=== PATIENT | male | born 1950 | race Caucasian/White ===

== ENCOUNTER 2020-03-27 01:14 | Inpatient (IN) | payer BC ==
[~2020-03-27] VITALS: Ht 185.4 cm; Wt 106.1 kg
[2020-03-27] VITALS (7 sets, daily range): BP systolic 145–184; BP diastolic 70–107
[2020-03-27] MEDS ORDERED: LIPITOR 20 MG T20 M1 PO (01:56)
[2020-03-27] MEDS ORDERED: GLIMEPIRIDE4 MG PO (01:58)
[2020-03-27] MEDS ORDERED: XARELTO20 MG PO (02:00)
[2020-03-27] MEDS ORDERED: LISINOPRIL2.5 MG PO (02:00)
[2020-03-27] MEDS ORDERED: METFORMIN HCL500 M3 PO (02:00)
[2020-03-27] MEDS ORDERED: ULTRAM 50MG TAB50 MG PO (02:01)
[2020-03-27] MEDS ORDERED: DOFETILIDE250 MCG PO (02:01)
[2020-03-27] MEDS ORDERED: CARVEDILOL12.5 MG PO (02:02)
[2020-03-27] MEDS ORDERED: SUPER THERAVIT1 EACH PO (02:02)
[2020-03-27 02:06] LABS: ABSOLUTE BASOPHILS 0.1 thou/uL (0.0-0.2); ABSOLUTE EOSINOPHILS 0.1 thou/uL (0.0-0.7); ABSOLUTE LYMPHOCYTES 2.8 thou/uL (0.8-5.3); ABSOLUTE MONOCYTES 0.8 thou/uL (0.0-1.2); ABSOLUTE NEUTROPHILS 9.3 thou/uL (1.6-8.1); BASOPHILS 0.5 %; EOSINOPHILS 0.6 %; HEMATOCRIT 40.8 % (42.0-52.0); HEMOGLOBIN 13.5 gm/dL (14.0-18.0); LYMPHOCYTES 21.6 %; MCH 31.1 pg (26.0-34.0); MCHC 33.1 g/dL (28.0-37.0); MONOCYTES 6.1 %; MPV 9.9 fl. (7.2-11.1); NUCLEATED RBCS 0 /100WBC; PLATELET COUNT* 212 thou/uL (150-400); POLYS 71.2 %; RBC 4.34 mil/uL (4.50-6.00); RDW-CV 13.6 % (10.5-14.5); WBC 13.1 thou/uL (4.0-11.0)
[2020-03-27 02:14] LABS: CALCIUM 8.7 mg/dL (8.5-10.1); CREATININE 1.1 mg/dL (0.6-1.3); POTASSIUM 3.5 mmol/L (3.5-5.1)
[2020-03-27 02:17] LABS: APTT 27.9 Seconds (25.0-31.3); INR 1.2; PROTIME 12.7 Seconds (9.20-11.50)
[2020-03-27 02:25] LABS: ALBUMIN 3.6 g/dL (3.4-5.0); TOTAL BILIRUBIN 0.6 mg/dL (<0.1-1.0); TOTAL PROTEIN 7.7 g/dL (6.4-8.2)
[2020-03-27 02:53] LABS: URINE BILIRUBIN NEGATIVE (Negative); URINE BLOOD NEGATIVE (Negative); URINE CLARITY CLEAR; URINE COLOR YELLOW; URINE GLUCOSE-RANDOM 2+ (Negative); URINE KETONES 2+ (Negative); URINE LEUKOCYTES-REFLEX NEGATIVE (Negative); URINE NITRITE-REFLEX NEGATIVE (Negative); URINE PROTEIN NEGATIVE (Negative); URINE SPECIFIC GRAVITY 1.015 (1.005-1.030); URINE UROBILINOGEN 0.2 E.U./dl (0.2-1.0)
--- NOTE | 2020-03-27 09:38 | EKG ---
[place] [address] ELECTROCARDIOGRAM REPORT Name: BORIS KAY Room: [place] [address] ADM IN [facility]#: [id number] Admission: 03/27/20 Attend Phys: Vladislav Lockett Discharge: Date of : 48 Date of Service: 03/27/20 0140 Report #: [id number] THIS REPORT FOR: //name// [facility] ED Test Date: 2020-03-27 Test Time: 01:40:12 Pat Name: BORIS KAY Department: Room: [facility] Gender: M Chin Strap Maker: [place] : 1950 Requested By: Yosef Andujar Order Number: [id number] MD: Sherwin Hay Measurements Intervals Herod Rate: 51 P: 21 LA: 197 QRS: -39 QRSD: 113 T: 43 QT: 514 QTc: 474 Interpretive Statements Sinus rhythm Atrial premature complexes Incomplete RBBB and LAFB Nonspecific T abnormalities, lateral leads No previous ECG available for comparison Electronically Signed On 03-27-2020 9:38:41 POUCH MAKER by Sherwin Hay [email or web address] <ELECTRONICALLY SIGNED> By: Sherwin Hay MD, [facility] 03/27/20 0938 0140 0140 Sherwin Hay MD, [facility] /EPI
--- NOTE | 2020-03-27 15:31 | NUR ---
cm completed initial assessment to discuss d/c planning. pt asleep, so cm spk w/pt at bedside. pt lives home w/spoue. 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 pt is independent w/cares. have good familial support, and 2 dtrs in the area. pt has no dmes. pt has no hx with hh or snf. cm to cont to follow.
--- NOTE | 2020-03-27 18:56 | NUR ---
PT ORIENTED TO ROOM, CALL LIGHT SHOWN, FALL AGREEMENT WENT OVER, PT STATED UNDERSTANDING. ADMISSION DOCUMENTED. MEDS GIVEN PER E-MAR. IV PATENT. FALL PRECAUTIONS IN PLACE.
[2020-03-28 00:50] VITALS: BP 144/78
[2020-03-28 04:36] VITALS: BP 155/91
--- NOTE | 2020-03-28 06:23 | NUR ---
ASSESSMENT: PT REMAIN ALERT AND ORIENT TIMES THREE. SITS ON THE SIDE OF THE BED TO USE THE URINAL. C/O JENNINGS EARLIER DURING THE SHIFT. CURRENTLY STATES THAT HIS JENNINGS HAS SUBSIDED BUT STILL HAVE A "LITTLE" DIZZINESS WITH SITTING UP IN BED. BP WAS ELEVATED, BP MEDS GIVEN WITH GOOD RESULTS. SR-SA PER MONITOR. TRAMADOL GIVEN FOR JENNINGS AND GENERALIZED PAIN. SLOW PROGRESS TOWARDS DC GOALS. WILL CONTINUE TO MONITOR.
[2020-03-28 06:53] LABS: CALCIUM 8.6 mg/dL (8.5-10.1); CHLORIDE 103 mmol/L (98-107); GLUCOSE 131 mg/dL (70-99); HDL CHOLESTEROL 34 mg/dL (>40); LDL CHOLESTEROL 40 mg/dL (<100); POTASSIUM 3.5 mmol/L (3.5-5.1); SGPT 24 U/L (30-65); SODIUM 139 mmol/L (136-145); TOTAL BILIRUBIN 0.9 mg/dL (<0.1-1.0); TOTAL PROTEIN 6.9 g/dL (6.4-8.2)
[2020-03-28 06:54] LABS: ALBUMIN 3.1 g/dL (3.4-5.0); ALKALINE PHOSPHATASE 64 U/L (46-116); ANION GAP 8 mmol/L (7-16); BUN 12 mg/dL (7-18); CHOLESTEROL 107 mg/dL (<200); CO2 28 mmol/L (21-32); SERUM ASSESSMENT Clear; SGOT 15 U/L (15-37); TC:HDL 3.1 Ratio (Not establshd); TRIGLYCERIDE 166 mg/dL (<150); VLDL 33 mg/dL (<40)
[2020-03-28 08:00] VITALS: BP 179/99
[2020-03-28 12:17] VITALS: BP 138/94
--- NOTE | 2020-03-28 12:25 | NUR ---
Anticipate dc tomorrow. OT to eval, PT to see again, need to get Pt up. ARU consulted. MRI negative, neuro following.
[2020-03-28 16:30] VITALS: BP 145/100
[2020-03-28 19:15] VITALS: BP 151/92
[2020-03-29 00:30] VITALS: BP 151/90
--- NOTE | 2020-03-29 02:45 | NUR ---
ASSUMED CARE OF PT AT 1900. PT IS ALERT AND ORIENTED. VSS. PERTHIEN. PT REPORTS ONGOING PAIN IN HIS LEFT KNEE. PT IS GETTING TRAMADOL FOR PAIN. PT IS IN SINUS ARRTHMIA AT THIS TIME. PT IS SLEEPING QUIETLY IN BED. RESPIRATIONS ARE EVEN AND NONLABORED. WILL CONTINUE TO MONITOR PT.
[2020-03-29 03:06] LABS: GLYCOHEMOGLOBIN (HGB A1C) 6.9 % (4.8-5.6)
[2020-03-29 08:00] VITALS: BP 153/101
[2020-03-29] MEDS ORDERED: MECLIZINE HCL25 MG PO (09:22)
[2020-03-29 11:13] VITALS: BP 153/101
--- NOTE | 2020-03-29 11:20 | NUR ---
Pt discharging to home today, no needs.
--- NOTE | 2020-03-29 12:02 | NUR ---
Cardiac Rehab Stroke Education completed including signs and symptoms of stroke, when to call 911, personal risk factor reduction, heart healthy diet. States understanding and questions answered to patient's satisfaction.
--- NOTE | 2020-04-01 12:47 | CON ---
[address] [address] CONSULTATION Name: BORIS KAY Room: [address] IN [facility].#: [id number] Admission: 03/27/20 Attend Phys: Anabel Prescott Discharge: 03/29/20 Date of : 48 Report #: [id number] THIS REPORT FOR: //name// cc: Caio Mckeon Vincent DO ~ DATE OF SERVICE: 03/27/2020 HISTORY OF PRESENT ILLNESS: This is a 69-year-old male patient who was evaluated by me because he had a relatively acute onset of dizziness at night, it happened around 9:00 p.m., but he was having some symptoms even before. He is also having some lower abdominal pain. He did not have this kind of symptoms before. After coming to Emergency Room, his symptoms have improved, but has not fully resolved. Emergency Room physician has noticed some nystagmus, but when I examined him, he does not appear to have any prominent nystagmus. REVIEW OF SYSTEMS: Indicate that he had a history of atrial fibrillation. He is on Xarelto. He had ablation at some time. He also is diabetic. His diabetic medications were readjusted few times. One time, his metformin dose was decreased and another time, his metformin dose was increased again. He denies any prior history of stroke and does have a history of diabetes as mentioned above. A 14-point review of system was carried out and he was not complaining of any other symptoms except as summarized above. PAST MEDICAL HISTORY: Positive for atrial fibrillation and ablation. FAMILY HISTORY: Negative for early age stroke. SOCIAL HISTORY: He does not drink any alcohol. PHYSICAL EXAMINATION: Indicate he is alert, responsive, able to follow simple and complex command. His speech looks intact. His cranial nerve examination looks unremarkable. I do not see any marked nystagmus. His strength, sensation and reflexes look symmetrical. He does dririt-hs-bmel reasonably well. There is no meningeal sign. There is no carotid bruit. He does have a history of atrial fibrillation, but he does not have any respiratory difficulty. His blood pressure is 155/77, respiration is 16, pulse is 60. LABORATORY DATA: Does indicate slightly increased white count at 13.1. IMPRESSION AND PLAN: I discussed with the Emergency Room physician that the first thing we need to decide if this patient has any abdominal problems, especially any infection there. They are working him up. More likely etiology will be labyrinthitis or ENT pathology if GI and pathology is excluded. However, we need to exclude posterior fossa pathology, which is less likely because he is on Xarelto, but cannot be fully excluded. He already had a CT angio of the head and neck. We will see what it shows and if that is okay, [place] [address] CONSULTATION Name: ELIZABORIS E Room: [address]#: [id number] Admission: 03/27/20 Attend Phys: Anabel Prescott Discharge: 03/29/20 Date of : 48 Report #: [id number] basilar artery or any large vessel pathology is excluded and then we can do an MRI of the brain, later on to see if any pathology is there. I discussed that with Dr. Andujar, the Emergency Room physician and we will follow up this patient with you later on today. <ELECTRONICALLY SIGNED> By: Luis Lema MD 04/01/20 1247 0528 [id number] Lema MD /nt
== END 2020-03-29 12:30 | disposition home or self-care (01) | DRG 69 ==
LOC: M.ERS 01:14 → M.TBA-ER 02:59 → M.2W 02:59
PROVIDERS: Emergency Medicine Emergency Medical Services; ADMIT Internal Medicine; ATTEND Internal Medicine
DX: G45.9 Transient cerebral ischemic attack, unspecified (principal); I48.20 Chronic atrial fibrillation, unspecified; E51.9 Thiamine deficiency, unspecified; Z20.828 Contact with and (suspected) exposure to other viral communicable diseases; E11.9 Type 2 diabetes mellitus without complications; E78.5 Hyperlipidemia, unspecified; M19.90 Unspecified osteoarthritis, unspecified site; H81.10 Benign paroxysmal vertigo, unspecified ear; Z79.82 Long term (current) use of aspirin; Z79.899 Other long term (current) drug therapy